=== PATIENT | male | born 1965 | race Caucasian/White ===

== ENCOUNTER 2022-11-20 10:32 | Inpatient (IN) | payer MEDICAID, SELFPAY ==
[2022-11-20 10:33] VITALS: BP 115/81; PULSE 102; RESP 22; TEMP 36.2; O2SAT 98
--- NOTE | 2022-11-20 10:39 | ED.RN ---
PT GETTING A LITTLE AGGRESSIVE IN TRIAGE
--- NOTE | 2022-11-20 12:11 | EKG12_ITS ---
Test Reason : DETOX Blood Pressure : / mmHG Vent. Rate : 081 BPM Atrial Rate : 081 BPM P-R Int : 170 ms QRS Dur : 086 ms QT Int : 366 ms P-R-T Axes : 054 -06 031 degrees QTc Int : 425 ms Normal sinus rhythm Normal ECG Confirmed by CAMELIA WILLS, NORMA ([id number]), fan mail editor PRABHA SNYDER ([id number]) on 11/21/2022 9:16:42 AM Referred By: Confirmed By:NORMA DENISE MD
--- NOTE | 2022-11-20 12:26 | EX.ED.SAOD ---
HPI History of Present Illness Chief Complaint: ETOH Intox Informant: patient and family Narrative Narrative: Patient is a 56-year-old male with history of neuropathy, alcohol abuse/dependence and alcohol intoxication presenting for request of alcohol detox. Patient states that he drinks three quarters of a liter of 80 proof vodka daily. Has been drinking for months. He did recently detoxed through [facility] 2 weeks ago but started drinking again shortly afterwards. He is hoping to go to residential treatment facility after this detox. Patient was drinking prior to arrival. He denies any illicit drug use or marijuana use. He does not use tobacco. He does note he has had some swelling of his lower feet but attributes that to neuropathy. Is not sure how long its been there. His sister and [id number] at the bedside. They are not sure how long as he had been swollen either. Patient does report 1 prior seizure which he attributes to alcohol withdrawal. Patient is no other complaints or concerns at this time. He states he has never been through our inpatient detox program. PFSH PFS Medical History Alcohol abuse Alcohol withdrawal Anxiety Depression Diabetes High cholesterol HTN (hypertension) Smoker Home Medications cetirizine 10 mg tablet (24Hour Allergy) 10 mg PO QHS 11/20/22 [History Last Taken Unknown] clonidine HCl 0.1 mg tablet 0.1 mg PO QHS 11/20/22 [History Last Taken Unknown] dapagliflozin propanediol 10 mg tablet (Farxiga) 10 mg PO DAILY 11/20/22 [History Last Taken Unknown] doxycycline hyclate 100 mg tablet 100 mg PO BID 11/20/22 [History Last Taken Unknown] fluoxetine 40 mg capsule 40 mg PO QPM 11/20/22 [History Last Taken Unknown] fluticasone propionate 50 mcg/actuation nasal spray,suspension (Allergy Relief (fluticasone)) 1 spray intranasal BID 11/20/22 [History Last Taken Unknown] gabapentin 300 mg capsule 300 mg PO TID 11/20/22 [History Last Taken Unknown] glimepiride 2 mg tablet 2 mg PO BID 11/20/22 [History Last Taken Unknown] metformin 500 mg tablet 500 mg PO BID 11/20/22 [History Last Taken Unknown] multivitamin (Daily Multi-Vitamin tablet) 1 tab PO DAILY 11/20/22 [History Last Taken Unknown] nortriptyline 25 mg capsule 25 mg PO QHS 11/20/22 [History Last Taken Unknown] olanzapine 5 mg tablet 10 mg PO QPM 11/20/22 [History Last Taken Unknown] omeprazole 20 mg capsule,delayed release 20 mg PO DAILY 11/20/22 [History Last Taken Unknown] topiramate 50 mg tablet 50 mg PO Q12H 11/20/22 [History Last Taken Unknown] Allergy/AdvReac Type Severity Reaction Status Date / Time No Known Allergies Allergy Verified 11/20/22 10:33 Surgical History Hx of neck surgery Social History Smoking Status: Current every day smoker tobacco type: cigarettes ROS ROS ED Constitutional Constitutional ED: Denies chills or fever(s) Cardiovascular Cardiovascular: Denies chest pain Respiratory/Chest Respiratory/Chest: Denies cough or dyspnea Gastrointestinal Gastrointestinal: Denies nausea or vomiting Musculoskeletal Musculoskeletal: Reports other Details: Bilateral foot swelling ; Denies arthralgias or myalgias Integumentary Denies rash Neurologic Neurologic: Denies weakness Psychiatric Psychiatric: Reports other Details: Alcohol dependency/abuse ; Denies suicidal ideation or suicidal thoughts EXAM Physical Exam Const Vital Signs: 11/20/22 10:33 11/20/22 13:33 Temperature 97.2 F L Temperature Source Temporal Pulse Rate 102 H 79 Respiratory Rate 22 H 16 Blood Pressure 115/81 H 114/94 H Blood Pressure Mean 92 100 Pulse Ox 98 96 Oxygen Delivery Method Room Air Room Air Positive well nourished and well developed Constitutional Narrative: Clinically patient appears intoxicated General Appearance ED: well developed and NAD; Negative for pallor HEENT Reports moist mucous membranes Eyes PERRL and EOMs intact bilaterally Neck supple Neck Narrative: Decreased range of motion, prior extensive cervical surgery Chest Wall inspection of chest normal and palpation of chest normal Resp normal respiratory effort and clear to auscultation bilaterally Cardio regular rate, regular rhythm and no murmurs GI soft to palpation, non-tender and non-distended Extremity Extremity Narrative: Pitting pedal edema bilaterally. General Extremety ED: Yes edema General Extremity: edema Neuro oriented x3 Psych mental status grossly normal and thought process normal Skin General Skin Exam: Negative for jaundice or pallor MDM MDM MDM Narrative Medical decision making narrative: Patient is evaluated for request for alcohol detox. Patient drinking heavily for around 2 weeks. He does appear to be acutely intoxicated. No signs of acute withdrawal at this time. Patient does have some nonspecific pedal edema of the feet. Denies any shortness of breath or respiratory symptoms. Patient's lab work is remarkable for mild hyponatremia with a sodium of 148. Kidney function is normal. As expected, blood alcohol is elevated at 330. Chest x-ray reviewed by myself shows hyperinflation. There is a question of possible scarring versus early infiltrate of the right side however patient does not have a leukocytosis, fever or hypoxia as well as no report of any acute cough so I do not think this is pneumonia. Do not think this requires treatment but can be followed during admission. This is discussed with admitting physician. 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 Clinically patient does not have findings distant with DVT and I do not think this requires a work-up. He does not have pleural effusions or significant abnormality on his EKG and I do not think this is heart failure picture. However, I suppose he is at risk for alcoholic cardiomyopathy. Will be given gentle IV fluids for his hyponatremia. Is admitted to medicine service for inpatient detox. Lab Data Attestation: I reviewed the patient's lab results. Labs: Laboratory Results - last 24 hr 11/20/22 12:54 WBC 5.3 RBC 3.46 L Hgb 11.3 L Hct 35.1 L MCV 101.4 H MCH 32.7 H MCHC 32.2 RDW Std Deviation 58.1 H RDW Coeff of Philip 15.4 H Plt Count 253 MPV 9.2 Immature Gran % (Auto) 1.700 H Neut % (Auto) 22.6 L Lymph % (Auto) 60.8 H [place] % (Auto) 10.6 H Eos % (Auto) 2.8 Baso % (Auto) 1.5 H Absolute Neuts (auto) 1.2 L Absolute Lymphs (auto) 3.21 Nucleated RBC % 0 Sodium 148 H Potassium 4.2 Chloride 111 H Carbon Dioxide 29.0 Anion Gap 8 BUN 7 Creatinine 0.66 L Est GFR (MDRD) Af Amer 160 Est GFR (MDRD) Non-Af 133 BUN/Creatinine Ratio 10.6 Glucose 117 H Calcium 8.8 Total Bilirubin 0.20 AST 23 ALT 30 Alkaline Phosphatase 77 B-Natriuretic Peptide 91.2 Total Protein 6.7 Albumin 2.7 L Globulin 4.0 Albumin/Globulin Ratio 0.7 L Urine Opiates Screen NEGATIVE Urine Methadone Screen NEGATIVE Ur Barbiturates Screen POSITIVE H Ur Phencyclidine Scrn NEGATIVE Ur Amphetamines Screen NEGATIVE MDMA (Ecstasy) Screen NEGATIVE U Benzodiazepines Scrn NEGATIVE Urine Cocaine Screen NEGATIVE U Cannabinoids Screen NEGATIVE Ur Drug Screen Comment Ethyl Alcohol 330.0 H* Radiography Diagnostic Testing: Clinical Impression(s) from Imaging Studies Chest X-Ray 11/20/22 12:57 IMPRESSION: Hyperinflation. Increased markings at the lung bases worse on the right side with areas of confluence. This may represent either scarring and/or early infiltrate. Electronically Signed: Neftali Mueller MD at 13:18 EDT , Rhythm Strip Rhythm Strip: Sinus Rhythm Rate: 81 Ectopy: None EKG Initial EKG: Attestation: I personally reviewed and interpreted this EKG as follows: Interpretation: Sinus Rhythm Comments: Normal sinus rhythm at a rate of 81 bpm Normal axis Normal intervals Normal ST segments Management Discussion w/another healthcare provider: Hospitalist Discharge Plan Dx/Rx/DC Orders Clinical Impression: Alcohol dependence, Hypernatremia Disposition Disposition: Acute Care Hospital [facility] Discharge Date/Time: 11/20/22 14:58
--- NOTE | 2022-11-20 12:57 | RAD_ITS ---
STUDY: X-RAY CHEST REASON FOR EXAM: Male, 56 years old. Edema TECHNIQUE: PA and lateral views of the chest. COMPARISON: None. FINDINGS: There is hyperinflation of the lungs consistent with chronic obstructive lung disease (COPD). Increased markings at the lung bases with areas of confluence worse in the right lower lobe. This may represent either scarring or right basilar infiltrate. There is no demonstrated pleural abnormality. Normal size heart. Normal mediastinum and sergio. Normal visualized pulmonary arteries. There is atherosclerotic tortuosity of the aortic arch and descending thoracic aorta. Normal visualized thoracic spine. Prior fusion in the lower cervical spine. There is no demonstrated abnormality of the visualized soft tissue structures of the upper abdomen. RAD/Chest 1 View (Portable) IMPRESSION: Hyperinflation. Increased markings at the lung bases worse on the right side with areas of confluence. This may represent either scarring and/or early infiltrate. Electronically Signed: Neftali Mueller MD at 13:18 EDT ,
[2022-11-20 13:02] LABS: Absolute Lymphocyte Count 3.21 X10^3/uL (0.83-4.51); Absolute Neutrophil Count 1.2 X10^3/uL (2.0-7.7); Basophil# 0.08 X10^3/uL; Basophil% 1.5 % (0-1); Eosinophil# 0.15 X10^3/uL; Eosinophils% 2.8 % (0-5); Hematocrit 35.1 % (40-54); Hemoglobin 11.3 g/dL (13.0-16.5); Lymphocyte # 3.21 X10^3/ul (0.83-4.51); Lymphocyte % 60.8 % (19-41); Mean Corp Hgb Conc 32.2 g/dL (32-36); Mean Corpuscular Hgb 32.7 pg (27.0-32.0); Mean Corpuscular Volume 101.4 fL (80-94); Mean Platelet Vol. 9.2 fl (6.2-12.0); Monocyte# 0.56 X10^3/uL; Monocyte% 10.6 % (0-10); NRBC Flagged by Analyzer 0 % (0-5); Neutrophil # 1.19 X10^3/uL (2.7-7.7); Neutrophil % 22.6 % (47-70); Platelet Count 253 K/mm3 (150-450); RBC Distribution Width CV 15.4 % (11.6-14.6); RBC Distribution Width SD 58.1 fl (35.1-43.9); Red Blood Count 3.46 M/mm3 (4.6-6.2); White Blood Count 5.3 K/mm3 (4.4-11.0)
[2022-11-20 13:20] LABS: ALB/GLOB Ratio 0.7 RATIO (0.9-2.4); AST(SGOT) 23 U/L (15-37); Alanine Aminotransfer ALT/SGPT 30 U/L (16-61); Albumin, Serum 2.7 g/dL (3.2-5.0); Alkaline Phosphatase 77 U/L (45-117); Anion Gap 8 (5-15); BUN 7 mg/dL (7-18); BUN/Creat Ratio 10.6 RATIO (10-20); Calcium,Total 8.8 mg/dL (8.5-10.1); Chloride 111 mmol/L (98-107); Creatinine, Serum 0.66 mg/dL (0.70-1.30); EST Glomerular Filtration Rate 133 mL/min (>60); Est Glom Filt Rate - Afr Amer 160 mL/min (>60); Glucose 117 mg/dL (74-106); Potassium 4.2 mmol/L (3.5-5.1); Protein, Total 6.7 g/dL (6.4-8.2); Sodium Level 148 mmol/L (136-145)
[2022-11-20 13:22] LABS: BNP,B-Type NATRIURETIC PEPTIDE 91.2 pg/mL (0-100)
[2022-11-20 13:25] LABS: Amphetamine Urine VISTA NEGATIVE (<1000 ng/mL); Barbiturate Urine VISTA POSITIVE (< 200 ng/mL); Benzodiazepine Urine VISTA NEGATIVE (< 200 ng/mL); Cocaine Urine VISTA NEGATIVE (< 300 ng/mL); Ecstacy Urine VISTA NEGATIVE (< 500 ng/mL); Methadone Urine VISTA NEGATIVE (< 300 ng/mL); PCP Urine VISTA NEGATIVE (< 25 ng/mL); THC Urine VISTA NEGATIVE (< 50 ng/mL); Vista UDS pH Range 6
[2022-11-20 13:33] VITALS: BP 114/94; PULSE 79; RESP 16; O2SAT 96
--- NOTE | 2022-11-20 13:56 | CM.ED ---
Social Work SW met with patient and patient's family and introduced herself and role as [facility] SW. Patient lying on hospital bed and agreeable to speak to SW with his family present. SW inquired about patient's knowledge and or questions regarding detox program. Patient shrugged his shoulders. SW briefly reviewed [facility] program including it being voluntary, personal belongings are locked up including his phone, no guests as well as meeting with the detox coordinator to discuss aftercare/discharge plan. Patient reports understanding and has no other needs. SW remains available if needs or questions arise. SW updated detox coordinator. Plan: SINDY KOLB, NAVEEN
--- NOTE | 2022-11-20 14:03 | HP.PCM.HOS_ITS ---
HPI - General General Date of Admission: 11/20/22 Date of Service: 11/20/22 Chief Complaint: Desire for detoxification HPI Narrative JEANETTE LANCASTER, is a 56 M who presents to the ED with desire for detoxification. Patient has [employer] past medical history including hypertension, diabetes mellitus type 2 as well as bipolar disorder. Patient reports daily use of alcohol he drinks 1/5 of vodka daily. Alcohol level on admission was greater than 300. An assessment of acute alcohol desiccation at significant risk for withdrawal was made patient admitted to regular nursing floor for further [facility] Medical History (Updated 11/20/22 @ 14:[address] Emeka Sequeira MD) Alcohol withdrawal High cholesterol HTN (hypertension) Home Medications cetirizine 10 mg tablet (24Hour Allergy) 10 mg PO QHS 11/20/22 [History Last Taken Unknown] clonidine HCl 0.1 mg tablet 0.1 mg PO QHS 11/20/22 [History Last Taken Unknown] dapagliflozin propanediol 10 mg tablet (Farxiga) 10 mg PO DAILY 11/20/22 [History Last Taken Unknown] doxycycline hyclate 100 mg tablet 100 mg PO BID 11/20/22 [History Last Taken Unknown] fluoxetine 40 mg capsule 40 mg PO QPM 11/20/22 [History Last Taken Unknown] fluticasone propionate 50 mcg/actuation nasal spray,suspension (Allergy Relief (fluticasone)) 1 spray intranasal BID 11/20/22 [History Last Taken Unknown] gabapentin 300 mg capsule 300 mg PO TID 11/20/22 [History Last Taken Unknown] glimepiride 2 mg tablet 2 mg PO BID 11/20/22 [History Last Taken Unknown] metformin 500 mg tablet 500 mg PO BID 11/20/22 [History Last Taken Unknown] multivitamin (Daily Multi-Vitamin tablet) 1 tab PO DAILY 11/20/22 [History Last Taken Unknown] nortriptyline 25 mg capsule 25 mg PO QHS 11/20/22 [History Last Taken Unknown] olanzapine 5 mg tablet 10 mg PO QPM 11/20/22 [History Last Taken Unknown] omeprazole 20 mg capsule,delayed release 20 mg PO DAILY 11/20/22 [History Last Taken Unknown] topiramate 50 mg tablet 50 mg PO Q12H 11/20/22 [History Last Taken Unknown] Allergy/AdvReac Type Severity Reaction Status Date / Time No Known Allergies Allergy Verified 11/20/22 10:33 Family History no significant family his no significant family history Surgical History Hx of neck surgery Social History Smoking Status: Unknown if ever smoked ROS ROS Narrative GENERAL: denies fever, chills, night sweats, weight loss, anorexia HEENT: denies headache, sinus congestion, or drainage, dysphagia RESPIRATORY: denies cough, sputum production, shortness of breath, CARDIAC: denies chest pain, palpitations, orthopnea, PND GASTROINTESTINAL: denies abdominal pain, nausea, vomiting, melena, GENITOURINARY: denies dysuria, urgency, frequency, heamaturia EXTREMITY: denies swelling MUSCULOSKELETAL: denies current joint pain or tenderness NEUROLOGIC: denies focal numbness, weakness, tingling HEMATOLOGIC: denies easy bruising and/or hemorrhage INTEGUMENT: denies rashes PSYCHIATRIC: denies suicidal or homicidal ideation Vital Signs Vital Signs Vital Signs: 11/20/22 10:33 11/20/22 13:33 Temperature 97.2 F L Temperature Source Temporal Pulse Rate 102 H 79 Respiratory Rate 22 H 16 Blood Pressure 115/81 H 114/94 H Blood Pressure Mean 92 100 Pulse Ox 98 96 Oxygen Delivery Method Room Air Room Air Physical Exam Narrative GENERAL: cooperative HEENT: Atraumatic; normocephalic EYES; Anicteric, Normal Conjunctiva NECK; supple, normal thyroid, RESPIRATORY: Diminished to auscultation CARDIOVASCULAR: Regular S1 S2, GI: soft, normoactive bowel sounds, : No Renal angle tenderness; EXTREMITIES: No edema, no clubbing, MUSCULOSKELETAL: no muscle wasting NEURO: Awake; no lateralizing signs. SKIN: No Rash PSYCH; Flat affect Results Lab / Micro Data 11/20/22 12:54 11/20/22 12:54 Labs: Laboratory Results - last 24 hr 11/20/22 12:54: WBC 5.3, RBC 3.46 L, Hgb 11.3 L, Hct 35.1 L, MCV 101.4 H, MCH 32.7 H, MCHC 32.2, RDW Std Deviation 58.1 H, RDW Coeff of Philip 15.4 H, Plt Count 253, MPV 9.2, Immature Gran % (Auto) 1.700 H, Neut % (Auto) 22.6 L, Lymph % (Auto) 60.8 H, [place] % (Auto) 10.6 H, Eos % (Auto) 2.8, Baso % (Auto) 1.5 H, Absolute Neuts (auto) 1.2 L, Absolute Lymphs (auto) 3.21, Nucleated RBC % 0, Sodium 148 H, Potassium 4.2, Chloride 111 H, Carbon Dioxide 29.0, Anion Gap 8, BUN 7, Creatinine 0.66 L, Est GFR (MDRD) Af Amer 160, Est GFR (MDRD) Non-Af 133, BUN/Creatinine Ratio 10.6, Glucose 117 H, Calcium 8.8, Total Bilirubin 0.20, AST 23, ALT 30, Alkaline Phosphatase 77, B-Natriuretic Peptide 91.2, Total Protein 6.7, Albumin 2.7 L, Globulin 4.0, Albumin/Globulin Ratio 0.7 L, Urine Opiates Screen NEGATIVE, Urine Methadone Screen NEGATIVE, Ur Barbiturates Screen POSITIVE H, Ur Phencyclidine Scrn NEGATIVE, Ur Amphetamines Screen NEGATIVE, MDMA (Ecstasy) Screen NEGATIVE, U Benzodiazepines Scrn NEGATIVE, Urine Cocaine Screen NEGATIVE, U Cannabinoids Screen NEGATIVE, Ur Drug Screen Comment , Ethyl Alcohol 330.0 H* Radiology Impression Chest X-Ray 11/20/22 12:57 IMPRESSION: Hyperinflation. Increased markings at the lung bases worse on the right side with areas of confluence. This may represent either scarring and/or early infiltrate. Electronically Signed: Neftali Mueller MD at 13:18 EDT , Assessment & Plan Assessment/Plan (1) Alcohol withdrawal: PLAN: Plan Patient is a 56-year-old gentleman with history of alcohol dependence presented with alcohol desiccation at risk for alcohol withdrawal 1. Alcohol desiccation at risk for alcohol withdrawal Patient admitted to regular nursing floor managed with phenobarb taper in addition to adjuvant medications 2. Hyponatremia ? Suspected to be secondary to dehydration patient started on fluids with subsequent monitoring of electrolytes ordered 3. Bipolar disorder ? Discontinue patient psychotropic medication 4. Diabetes mellitus type II Did continue patient home medications in addition to Accu-Cheks a.c. and at bedtime and covered with sliding scale insulin 5. Tobacco dependence - Counseled on cessation, offered nicotine patch for tobacco cravings 6. Diabetic polyneuropathy ? Patient is on gabapentin did continue 7. GERD ? Patient is on PPI 8. Hypertension - Blood pressure controlled, home medications continued with dose adjustment as needed 9. DVT prophylaxis ? Low risk, encouraging ambulation Time spent in the patient's overall evaluation,decision-making process, review of diagnostic data, adjustment of management, discussion with other providers, nursing nursing and ancillary staff involved in patient's care documentation, 60 Minutes Charges/Coding Visit Charges Inpatient E&M: 71434 Init Hosp L2
[2022-11-20 14:07] VITALS: BP 114/94; PULSE 79; RESP 16; TEMP 36.4; O2SAT 96
--- NOTE | 2022-11-20 14:14 | NURSING ---
[address] [place] [address] [facility]
[2022-11-20 15:03] VITALS: BMI 25.2
[2022-11-20 15:11] VITALS: BP 125/89; PULSE 75; RESP 18; TEMP 36.7; O2SAT 100
[2022-11-20] MEDS: Lactated Ringers 1,000 ML 125 ML IV (15:36)
[2022-11-20] MEDS: Phenobarbital 32.4 MG Tablet 64.8 MG PO ×3 (15:36→22:07)
[2022-11-20] MEDS: Gabapentin 300 MG Capsule PO ×2 (15:36→22:06)
[2022-11-20 16:37] LABS: Bedside Glucose 123 mg/dL (74-106)
[2022-11-20 18:00] VITALS: BP 120/75; PULSE 85; RESP 18; TEMP 36.3; O2SAT 94
[2022-11-20] MEDS: Topiramate 50 MG Tablet PO (18:50)
[2022-11-20 22:00] VITALS: BP 128/84; PULSE 78; RESP 18; TEMP 36.7; O2SAT 97
[2022-11-20] MEDS: Glimepiride 2 MG Tablet PO (22:06)
[2022-11-20] MEDS: hydrOXYzine PAM 25 MG Capsule 50 MG PO (22:06)
[2022-11-20] MEDS: Nortriptyline 25 MG Capsule PO (22:06)
[2022-11-20] MEDS: cloNIDine HCl 0.1 MG Tablet PO (22:06)
[2022-11-20] MEDS: metFORMIN HCl 500 MG Tablet PO (22:07)
[2022-11-20] MEDS: OLANZapine 10 MG Tablet PO (22:07)
[2022-11-20] MEDS: Loratadine 10 MG Tablet PO (22:07)
[2022-11-20] MEDS: Fluoxetine HCl 40 MG CAPSULE PO (22:07)
[2022-11-20] MEDS: Fluticasone 0.05% 1 SPRAY NASAL.SRY NASAL (22:11)
[2022-11-20 23:00] LABS: Bedside Glucose 132 mg/dL (74-106)
[2022-11-21] MEDS: Topiramate 50 MG Tablet PO ×2 (03:31→15:16)
[2022-11-21] MEDS: hydrOXYzine PAM 25 MG Capsule 50 MG PO ×2 (03:31→21:54)
[2022-11-21] MEDS: Phenobarbital 32.4 MG Tablet 64.8 MG PO ×6 (03:31→21:57)
[2022-11-21 03:45] VITALS: BP 110/77; PULSE 74; RESP 16; TEMP 36.6; O2SAT 98
[2022-11-21 06:00] VITALS: PULSE 72; RESP 16; TEMP 36.6; O2SAT 98
[2022-11-21] MEDS: Gabapentin 300 MG Capsule PO ×3 (06:11→21:54)
[2022-11-21 06:33] LABS: Bedside Glucose 112 mg/dL (74-106)
[2022-11-21 07:00] LABS: ALB/GLOB Ratio 0.7 RATIO (0.9-2.4); AST(SGOT) 19 U/L (15-37); Alanine Aminotransfer ALT/SGPT 23 U/L (16-61); Albumin, Serum 2.3 g/dL (3.2-5.0); Alkaline Phosphatase 69 U/L (45-117); Anion Gap 5 (5-15); BUN 9 mg/dL (7-18); BUN/Creat Ratio 17.2 RATIO (10-20); Calcium,Total 8.6 mg/dL (8.5-10.1); Chloride 108 mmol/L (98-107); Creatinine, Serum 0.52 mg/dL (0.70-1.30); EST Glomerular Filtration Rate 173 mL/min (>60); Est Glom Filt Rate - Afr Amer 209 mL/min (>60); Estimated Creatinine Clearance 168.94 ml/min; Globulin 3.5 g/dL (2.2-4.2); Glucose 104 mg/dL (74-106); Potassium 3.5 mmol/L (3.5-5.1); Protein, Total 5.8 g/dL (6.4-8.2); Sodium Level 140 mmol/L (136-145)
--- NOTE | 2022-11-21 07:25 | PN.HOSP_ITS ---
Reason for Visit Reason for Visit: Diagnoses Alcohol use, unspecified with withdrawal, unspecified (11/20/22) Subjective Subjective Patient is a 56-year-old gentleman with history of alcohol dependence presented with alcohol intoxication. Admitted to regular nursing floor where patient is currently being managed with phenobarb taper Objective Data Objective Data Vital Signs: Vital Signs Temp Pulse Resp BP Pulse Ox O2 Del Method 97.9 F 74 16 110/77 98 Room Air 11/21/22 03:45 11/21/22 03:45 11/21/22 03:45 11/21/22 03:45 11/21/22 03:45 11/21/22 03:45 Oxygen Delivery Method Room Air Weight: 82 kg Body Mass Index (BMI) 25.2 Intake & Output: Intake and Output for Last 24 Hours 11/19/22 11/20/22 11/21/22 23:59 23:59 23:59 Intake Total 1000 / 1000 Balance 1000 / 1000 Lab / Micro Data 11/20/22 12:54 11/21/22 05:30 Labs: Laboratory Results - last 24 hr 11/20/22 12:54: WBC 5.3, RBC 3.46 L, Hgb 11.3 L, Hct 35.1 L, MCV 101.4 H, MCH 32.7 H, MCHC 32.2, RDW Std Deviation 58.1 H, RDW Coeff of Philip 15.4 H, Plt Count 253, MPV 9.2, Immature Gran % (Auto) 1.700 H, Neut % (Auto) 22.6 L, Lymph % (Auto) 60.8 H, [place] % (Auto) 10.6 H, Eos % (Auto) 2.8, Baso % (Auto) 1.5 H, Absolute Neuts (auto) 1.2 L, Absolute Lymphs (auto) 3.21, Nucleated RBC % 0, Sodium 148 H, Potassium 4.2, Chloride 111 H, Carbon Dioxide 29.0, Anion Gap 8, BUN 7, Creatinine 0.66 L, Est GFR (MDRD) Af Amer 160, Est GFR (MDRD) Non-Af 133, BUN/Creatinine Ratio 10.6, Glucose 117 H, Calcium 8.8, Total Bilirubin 0.20, AST 23, ALT 30, Alkaline Phosphatase 77, B-Natriuretic Peptide 91.2, Total Protein 6.7, Albumin 2.7 L, Globulin 4.0, Albumin/Globulin Ratio 0.7 L, Urine Opiates Screen NEGATIVE, Urine Methadone Screen NEGATIVE, Ur Barbiturates Screen POSITIVE H, Ur Phencyclidine Scrn NEGATIVE, Ur Amphetamines Screen NEGATIVE, MDMA (Ecstasy) Screen NEGATIVE, U Benzodiazepines Scrn NEGATIVE, Urine Cocaine Screen NEGATIVE, U Cannabinoids Screen NEGATIVE, Ur Drug Screen Comment , Ethyl Alcohol 330.0 H* 11/20/22 16:18: POC Glucose 123 H 11/20/22 22:14: POC Glucose 132 H 11/21/22 05:30: Sodium 140, Potassium 3.5, Chloride 108 H, Carbon Dioxide 27.0, Anion Gap 5, BUN 9, Creatinine 0.52 L, Estim Creat Clear Calc 168.94, Est GFR (MDRD) Af Amer 209, Est GFR (MDRD) Non-Af 173, BUN/Creatinine Ratio 17.2, Glucose 104, Calcium 8.6, Total Bilirubin 0.30, AST 19, ALT 23, Alkaline Phosphatase 69, Total Protein 5.8 L, Albumin 2.3 L, Globulin 3.5, Albumin/Globulin Ratio 0.7 L 11/21/22 06:10: POC Glucose 112 H Radiography Diagnostic Testing: Radiology Impression Chest X-Ray 11/20/22 12:57 IMPRESSION: Hyperinflation. Increased markings at the lung bases worse on the right side with areas of confluence. This may represent either scarring and/or early infiltrate. Electronically Signed: Neftali Mueller MD at 13:18 EDT , Rhythm Strip Rhythm Strip: Sinus Rhythm Rate: 81 Ectopy: None Physical Exam Narrative GENERAL: cooperative HEENT: Atraumatic; normocephalic EYES; Anicteric, Normal Conjunctiva NECK; supple, normal thyroid, RESPIRATORY: Diminished to auscultation CARDIOVASCULAR: Regular S1 S2, GI: soft, normoactive bowel sounds, : No Renal angle tenderness; EXTREMITIES: No edema, no clubbing, MUSCULOSKELETAL: no muscle wasting NEURO: Awake; no lateralizing signs. SKIN: No Rash PSYCH; Flat affect Assessment & Plan Assessment/Plan (1) Alcohol withdrawal: PLAN: Plan Patient is a 56-year-old gentleman with history of alcohol dependence presented with alcohol tox occasion at risk for alcohol withdrawal 1. Alcohol intoxication at risk for alcohol withdrawal Patient admitted to regular nursing floor managed with phenobarb taper in addition to adjuvant medications ? 11/21/2022; patient is on a phenobarbital 2. Hyponatremia ? Suspected to be secondary to dehydration patient started on fluids with subsequent monitoring of electrolytes ordered 3. Bipolar disorder ? Discontinue patient psychotropic medication 4. Diabetes mellitus type II Did continue patient home medications in addition to Accu-Cheks a.c. and at bedtime and covered with sliding scale insulin 5. Tobacco dependence - Counseled on cessation, offered nicotine patch for tobacco cravings 6. Diabetic polyneuropathy ? Patient is on gabapentin did continue 7. GERD ? Patient is on PPI 8. Hypertension - Blood pressure controlled, home medications continued with dose adjustment as needed 9. DVT prophylaxis ? Low risk, encouraging ambulation Time spent in the patient's overall evaluation,decision-making process, review of diagnostic data, adjustment of management, discussion with other providers, nursing nursing and ancillary staff involved in patient's care documentation, 35 Minutes Charges/Coding Visit Charges Inpatient E&M: 90329 Subs Hosp L2
[2022-11-21] MEDS: metFORMIN HCl 500 MG Tablet PO ×2 (09:11→21:47)
[2022-11-21] MEDS: Multivitamins,Therapeutic Tablet 1 TABLET PO (09:11)
[2022-11-21] MEDS: Thiamine Hydrochloride 100 MG Tablet PO (09:11)
[2022-11-21] MEDS: Pantoprazole Sodium 20 MG Tablet PO (09:11)
[2022-11-21] MEDS: Fluticasone 0.05% 1 SPRAY NASAL.SRY NASAL (09:12)
[2022-11-21] MEDS: Folic Acid 1 MG Tablet PO (09:12)
[2022-11-21] MEDS: Glimepiride 2 MG Tablet PO ×2 (09:12→21:47)
[2022-11-21] MEDS: Empagliflozin 10 MG Tablet PO (09:17)
[2022-11-21 10:00] VITALS: BP 126/82; PULSE 78; RESP 16; TEMP 36.6; O2SAT 99
[2022-11-21] MEDS: Insulin Lispro 100 UNIT/ML INSULN.PEN SC ×3 (11:39→21:48)
[2022-11-21 11:53] LABS: Bedside Glucose 281 mg/dL (74-106)
--- NOTE | 2022-11-21 13:43 | ADDICTION ---
This selling underwriter met with PT to conduct ASAM, MSE, AUDIT assessments and to plan for d/c. PT A+Ox4 and participated actively. All assessments completed and placed in PT's chart. PT plans to f/u with [facility] for follow-up inpatient treatment services. PT reports that we will need to call [facility] for transportation post d/c from [facility].
[2022-11-21 14:00] VITALS: BP 116/80; PULSE 74; RESP 16; TEMP 36.7; O2SAT 96
--- NOTE | 2022-11-21 16:43 | CHAPLAIN ---
Type of Pastoral Visit _x__ Initial Visit ___ Follow-up Visit ___ On-call Visit ___ General Patient Visit ___ Spiritual Assessment ___ Family Conference ___ Bereavement ___ Rapid Response ___ Code Blue ___ Other (describe below) Pastoral Care Referral From _x__ Patient ___ Family ___ Nurse ___ Physician ___ Rug Receiving Clerk ___ Shuttleless Loom Weaver ___ Other (describe below) Sacrament/Intervention _x__ Active listening ___ Anointing ___ Caodaism ___ Bereavement ___ Communion _x__ Gisell exploration ___ _x__ Life review _x__ Prayer ___ Reconciliation ___ Sacrament of Sick ___ Supportive presence ___ Wedding ___ Other (describe below) Pastoral Comments patient accepts presence of this plate molder and answers questions; pt states that he needs something to do so he won't drink; pt explains his situation of being on disability, living alone, having very limited support system, and inactive with catholic; pt repeats that he just needs something to do; explored what patient believes would be helpful activities for himself; pt welcomes prayer
[2022-11-21 16:44] LABS: Bedside Glucose 182 mg/dL (74-106)
[2022-11-21 21:41] VITALS: BP 99/61; PULSE 72; RESP 18; TEMP 36.3; O2SAT 98
[2022-11-21] MEDS: OLANZapine 10 MG Tablet PO (21:47)
[2022-11-21] MEDS: Loratadine 10 MG Tablet PO (21:47)
[2022-11-21] MEDS: Nortriptyline 25 MG Capsule PO (21:47)
[2022-11-21] MEDS: Fluoxetine HCl 40 MG CAPSULE PO (21:47)
[2022-11-21 22:07] LABS: Bedside Glucose 171 mg/dL (74-106)
[2022-11-22] MEDS: Topiramate 50 MG Tablet PO ×2 (03:42→14:44)
[2022-11-22] MEDS: Phenobarbital 32.4 MG Tablet 64.8 MG PO ×6 (03:42→22:44)
[2022-11-22 03:44] VITALS: BP 133/99; PULSE 112; RESP 18; TEMP 36.4; O2SAT 97
[2022-11-22] MEDS: Gabapentin 300 MG Capsule PO ×3 (06:34→22:32)
[2022-11-22] MEDS: Insulin Lispro 100 UNIT/ML INSULN.PEN SC ×4 (06:36→22:38)
[2022-11-22 06:54] LABS: Bedside Glucose 205 mg/dL (74-106)
--- NOTE | 2022-11-22 07:06 | PN.HOSP_ITS ---
Reason for Visit Reason for Visit: Diagnoses Alcohol use, unspecified with withdrawal, unspecified (11/20/22) Subjective Subjective Has tolerated the phenobarb taper well so far Objective Data Objective Data Vital Signs: Vital Signs Temp Pulse Resp BP Pulse Ox O2 Del Method 97.5 F L 112 H 18 133/99 H 97 Room Air 11/22/22 03:44 11/22/22 03:44 11/22/22 03:44 11/22/22 03:44 11/22/22 03:44 11/22/22 03:44 Oxygen Delivery Method Room Air Weight: 82 kg Body Mass Index (BMI) 25.2 Intake & Output: Intake and Output for Last 24 Hours 11/20/22 11/21/22 11/22/22 23:59 23:59 23:59 Intake Total 1000 / 1000 600 / 600 Output Total 1450 / 1450 Balance 1000 / 1000 -850 / -850 Lab / Micro Data 11/20/22 12:54 11/21/22 05:30 Labs: Laboratory Results - last 24 hr 11/21/22 11:35: POC Glucose 281 H 11/21/22 16:23: POC Glucose 182 H 11/21/22 21:47: POC Glucose 171 H 11/22/22 06:35: POC Glucose 205 H Rhythm Strip Rhythm Strip: Sinus Rhythm Rate: 81 Ectopy: None Physical Exam Narrative GENERAL: cooperative HEENT: Atraumatic; normocephalic EYES; Anicteric, Normal Conjunctiva NECK; supple, normal thyroid, RESPIRATORY: Diminished to auscultation CARDIOVASCULAR: Regular S1 S2, GI: soft, normoactive bowel sounds, : No Renal angle tenderness; EXTREMITIES: No edema, no clubbing, MUSCULOSKELETAL: no muscle wasting NEURO: Awake; no lateralizing signs. SKIN: No Rash PSYCH; Flat affect Assessment & Plan Assessment/Plan (1) Alcohol withdrawal: PLAN: Plan Patient is a 56-year-old gentleman with history of alcohol dependence presented with alcohol tox occasion at risk for alcohol withdrawal 1. Alcohol intoxication at risk for alcohol withdrawal Patient admitted to regular nursing floor managed with phenobarb taper in edna tion to adjuvant medications ? 11/21/2022; patient is on a phenobarbital 2. Hyponatremia ? Suspected to be secondary to dehydration patient started on fluids with subsequent monitoring of electrolytes ordered 3. Bipolar disorder ? Discontinue patient psychotropic medication 4. Diabetes mellitus type II Did continue patient home medications in addition to Accu-Cheks a.c. and at bedtime and covered with sliding scale insulin 5. Tobacco dependence - Counseled on cessation, offered nicotine patch for tobacco cravings 6. Diabetic polyneuropathy ? Patient is on gabapentin did continue 7. GERD ? Patient is on PPI 8. Hypertension - Blood pressure controlled, home medications continued with dose adjustment as needed 9. DVT prophylaxis ? Low risk, encouraging ambulation Time spent in the patient's overall evaluation,decision-making process, review of diagnostic data, adjustment of management, discussion with other providers, nursing nursing and ancillary staff involved in patient's care documentation, 35 Minutes Charges/Coding Visit Charges Inpatient E&M: 37027 Subs Hosp L2
[2022-11-22] MEDS: Multivitamins,Therapeutic Tablet 1 TABLET PO (07:42)
[2022-11-22] MEDS: Glimepiride 2 MG Tablet PO ×2 (07:42→22:33)
[2022-11-22] MEDS: metFORMIN HCl 500 MG Tablet PO ×2 (07:43→22:32)
[2022-11-22] MEDS: Fluticasone 0.05% 1 SPRAY NASAL.SRY NASAL ×2 (07:43→22:33)
[2022-11-22] MEDS: Folic Acid 1 MG Tablet PO (07:43)
[2022-11-22] MEDS: Thiamine Hydrochloride 100 MG Tablet PO (07:44)
[2022-11-22] MEDS: Pantoprazole Sodium 20 MG Tablet PO (07:44)
[2022-11-22] MEDS: Empagliflozin 10 MG Tablet PO (07:44)
[2022-11-22 09:00] VITALS: BP 103/71; PULSE 82; RESP 16; TEMP 36.4; O2SAT 98
[2022-11-22 11:27] LABS: Bedside Glucose 201 mg/dL (74-106)
[2022-11-22 11:35] VITALS: BP 104/68; PULSE 88; RESP 16; TEMP 36.4; O2SAT 99
[2022-11-22 14:57] VITALS: BP 91/63; PULSE 91; RESP 16; TEMP 36.6; O2SAT 97
[2022-11-22 16:18] LABS: Bedside Glucose 162 mg/dL (74-106)
[2022-11-22 20:58] VITALS: BP 117/81; PULSE 77; RESP 16; TEMP 36.6; O2SAT 97
[2022-11-22] MEDS: Nortriptyline 25 MG Capsule PO (22:32)
[2022-11-22] MEDS: Loratadine 10 MG Tablet PO (22:32)
[2022-11-22] MEDS: OLANZapine 10 MG Tablet PO (22:33)
[2022-11-22] MEDS: Fluoxetine HCl 40 MG CAPSULE PO (22:33)
[2022-11-22] MEDS: cloNIDine HCl 0.1 MG Tablet PO (22:34)
[2022-11-22 23:03] LABS: Bedside Glucose 221 mg/dL (74-106)
[2022-11-23 03:00] VITALS: BP 98/71; PULSE 94; RESP 16; TEMP 36.4; O2SAT 98
[2022-11-23] MEDS: Topiramate 50 MG Tablet PO (03:50)
[2022-11-23] MEDS: Phenobarbital 32.4 MG Tablet 64.8 MG PO ×2 (06:26→12:05)
[2022-11-23] MEDS: Gabapentin 300 MG Capsule PO (06:26)
[2022-11-23] MEDS: Insulin Lispro 100 UNIT/ML INSULN.PEN SC ×2 (06:30→12:01)
[2022-11-23 06:49] LABS: Bedside Glucose 158 mg/dL (74-106)
[2022-11-23 08:56] VITALS: BP 100/74; PULSE 83; RESP 16; TEMP 36.5; O2SAT 100
--- NOTE | 2022-11-23 09:03 | PCM.PN.HOSP ---
Reason for Visit Reason for Visit: Diagnoses Alcohol use, unspecified with withdrawal, unspecified (11/20/22) Subjective Subjective Patient seen at a relatively uneventful night. Plan for patient to be assessed for possible discharge Objective Data Objective Data Vital Signs: Vital Signs Temp Pulse Resp BP Pulse Ox O2 Del Method 97.7 F L 83 16 100/74 100 Room Air 11/23/22 08:56 11/23/22 08:56 11/23/22 08:56 11/23/22 08:56 11/23/22 08:56 11/23/22 08:56 Oxygen Delivery Method Room Air Weight: 82 kg Body Mass Index (BMI) 25.2 Intake & Output: Intake and Output for Last 24 Hours 11/21/22 11/22/22 11/23/22 23:59 23:59 23:59 Intake Total 600 / 600 1250 / 1730 480 / 480 Output Total 1450 / 1450 Balance -850 / -850 1250 / 1730 480 / 480 Lab / Micro Data 11/20/22 12:54 11/21/22 05:30 Labs: Laboratory Results - last 24 hr 11/22/22 11:07: POC Glucose 201 H 11/22/22 15:57: POC Glucose 162 H 11/22/22 22:38: POC Glucose 221 H 11/23/22 06:29: POC Glucose 158 H Rhythm Strip Rhythm Strip: Sinus Rhythm Rate: 81 Ectopy: None Physical Exam Narrative GENERAL: cooperative HEENT: Atraumatic; normocephalic EYES; Anicteric, Normal Conjunctiva NECK; supple, normal thyroid, RESPIRATORY: Diminished to auscultation CARDIOVASCULAR: Regular S1 S2, GI: soft, normoactive bowel sounds, : No Renal angle tenderness; EXTREMITIES: No edema, no clubbing, MUSCULOSKELETAL: no muscle wasting NEURO: Awake; no lateralizing signs. SKIN: No Rash PSYCH; Flat affect Assessment & Plan Assessment/Plan (1) Alcohol withdrawal: PLAN: Plan Patient is a 56-year-old gentleman with history of alcohol dependence presented with alcohol tox occasion at risk for alcohol withdrawal 1. Alcohol intoxication at risk for alcohol withdrawal Patient admitted to regular nursing floor managed with phenobarb taper in addition to adjuvant medications ? 11/21/2022; patient is on a phenobarbital 2. Hyponatremia ? Suspected to be secondary to dehydration patient started on fluids with subsequent monitoring of electrolytes ordered 3. Bipolar disorder ? Discontinue patient psychotropic medication 4. Diabetes mellitus type II Did continue patient home medications in addition to Accu-Cheks a.c. and at bedtime and covered with sliding scale insulin 5. Tobacco dependence - Counseled on cessation, offered nicotine patch for tobacco cravings 6. Diabetic polyneuropathy ? Patient is on gabapentin did continue 7. GERD ? Patient is on PPI 8. Hypertension - Blood pressure controlled, home medications continued with dose adjustment as needed 9. DVT prophylaxis ? Low risk, encouraging ambulation Time spent in the patient's overall evaluation,decision-making process, review of diagnostic data, adjustment of management, discussion with other providers, nursing nursing and ancillary staff involved in patient's care documentation, 35 Minutes Charges/Coding Visit Charges Inpatient E&M: 55635 Subs Hosp L2
[2022-11-23] MEDS: Pantoprazole Sodium 20 MG Tablet PO (09:05)
[2022-11-23] MEDS: Multivitamins,Therapeutic Tablet 1 TABLET PO (09:05)
[2022-11-23] MEDS: Glimepiride 2 MG Tablet PO (09:05)
--- NOTE | 2022-11-23 09:06 | PCM.DC.SUM ---
Providers Date of Admission: 11/20/22 Date of Discharge: 11/23/22 Primary Care Physician: Luis Tarango Reason For Visit: ALCOHOL WITHDRAWAL Diagnosis Discharge Diagnosis (1) Alcohol withdrawal: Status: Acute Code(s): F10.939 - Alcohol use, unspecified with withdrawal, unspecified Plan Patient is a 56-year-old gentleman with history of alcohol dependence presented with alcohol tox occasion at risk for alcohol withdrawal 1. Alcohol intoxication at risk for alcohol withdrawal Patient admitted to regular nursing floor managed with phenobarb taper in addition to adjuvant medications ? 11/21/2022; patient is on a phenobarbital 2. Hyponatremia ? Suspected to be secondary to dehydration patient started on fluids with subsequent monitoring of electrolytes ordered 3. Bipolar disorder ? Discontinue patient psychotropic medication 4. Diabetes mellitus type II Did continue patient home medications in addition to Accu-Cheks a.c. and at bedtime and covered with sliding scale insulin 5. Tobacco dependence - Counseled on cessation, offered nicotine patch for tobacco cravings 6. Diabetic polyneuropathy ? Patient is on gabapentin did continue 7. GERD ? Patient is on PPI 8. Hypertension - Blood pressure controlled, home medications continued with dose adjustment as needed 9. DVT prophylaxis ? Low risk, encouraging ambulation Time spent in the patient's overall evaluation,decision-making process, review of diagnostic data, adjustment of management, discussion with other providers, nursing nursing and ancillary staff involved in patient's care documentation, 35 Minutes Medications at Discharge Home Medications cetirizine 10 mg tablet (24Hour Allergy) 10 mg PO QHS 11/20/22 clonidine HCl 0.1 mg tablet 0.1 mg PO QHS 11/20/22 dapagliflozin propanediol 10 mg tablet (Farxiga) 10 mg PO DAILY 11/20/22 fluoxetine 40 mg capsule 40 mg PO QPM 11/20/22 fluticasone propionate 50 mcg/actuation nasal spray,suspension (Allergy Relief (fluticasone)) 1 spray intranasal BID 11/20/22 gabapentin 300 mg capsule 300 mg PO TID 11/20/22 glimepiride 2 mg tablet 2 mg PO BID 11/20/22 metformin 500 mg tablet 500 mg PO BID 11/20/22 multivitamin (Daily Multi-Vitamin tablet) 1 tab PO DAILY 11/20/22 nortriptyline 25 mg capsule 25 mg PO QHS 11/20/22 olanzapine 5 mg tablet 10 mg PO QPM 11/20/22 omeprazole 20 mg capsule,delayed release 20 mg PO DAILY 11/20/22 topiramate 50 mg tablet 50 mg PO Q12H 11/20/22 Hospital Course Summary of Care Provided Minutes Spent on Discharge: 35 Physical Exam Narrative GENERAL: cooperative HEENT: Atraumatic; normocephalic EYES; Anicteric, Normal Conjunctiva NECK; supple, normal thyroid, RESPIRATORY: Diminished to auscultation CARDIOVASCULAR: Regular S1 S2, GI: soft, normoactive bowel sounds, : No Renal angle tenderness; EXTREMITIES: No edema, no clubbing, MUSCULOSKELETAL: no muscle wasting NEURO: Awake; no lateralizing signs. SKIN: No Rash PSYCH; Flat affect Weight / BMI Weight Weight: 82 kg Body Mass Index (BMI) 25.2 ABG / Lab / Microbiology Data 11/20/22 12:54 11/21/22 05:30 Laboratory: Laboratory Results - last 24 hr 11/22/22 11:07: POC Glucose 201 H 11/22/22 15:57: POC Glucose 162 H 11/22/22 22:38: POC Glucose 221 H 11/23/22 06:29: POC Glucose 158 H D/C Instructions Discharge Diet: 1800 Calorie Control Diet Discharge Activity: Return to Normal Activity Call your doctor if you observe: Fever of 101 or Higher, Shortness of breath, Fainting spells and Chest pain Meaningful Use Info Meaningful Use Diagnoses (Choose all that apply): None applicable Discharge Plan Admission Admit Date/Time: 11/20/22 13:56 Attending Provider: Emeka Sequeira Primary Care Provider: Luis Tarango Discharge Orders/Prescriptions Prescriptions: Continued gabapentin 300 mg capsule 300 mg PO TID clonidine HCl 0.1 mg tablet 0.1 mg PO QHS Farxiga 10 mg tablet 10 mg PO DAILY olanzapine 5 mg tablet 10 mg PO QPM multivitamin [Daily Multi-Vitamin] Tablet 1 tab PO DAILY omeprazole 20 mg capsule,delayed release(DR/EC) 20 mg PO DAILY topiramate 50 mg tablet 50 mg PO Q12H Patient Comments: Take 1 tablet by mouth twice a day metformin 500 mg tablet 500 mg PO BID fluoxetine 40 mg capsule 40 mg PO QPM glimepiride 2 mg tablet 2 mg PO BID cetirizine [24Hour Allergy] 10 mg tablet 10 mg PO QHS nortriptyline 25 mg capsule 25 mg PO QHS fluticasone propionate [Allergy Relief (fluticasone)] 50 mcg/actuation spray,suspension 1 spray intranasal BID Rx Instructions: administer into each nostril Discontinued doxycycline hyclate 100 mg tablet 100 mg PO BID Referrals / Follow Up: Luis Tarango [Other] Luis Tarango [Other] Disposition Disposition (needs filled in before D/C Order can be placed): Home, Self Care Charges/Coding Visit Charges Inpatient E&M: 50648 Disch Hosp >30min
[2022-11-23] MEDS: Fluticasone 0.05% 1 SPRAY NASAL.SRY NASAL (09:07)
[2022-11-23] MEDS: metFORMIN HCl 500 MG Tablet PO (09:07)
[2022-11-23] MEDS: Folic Acid 1 MG Tablet PO (09:07)
[2022-11-23] MEDS: Thiamine Hydrochloride 100 MG Tablet PO (09:08)
[2022-11-23] MEDS: Empagliflozin 10 MG Tablet PO (09:08)
--- NOTE | 2022-11-23 10:20 | NURSING ---
talked with Jaja Ray Navigator as aware per Chief Deputy Clerk/Bailiff Hortencia that [facility] when called stated they do not have any open beds for patient today. Aware per Jaja they will work with patient tomorrow thursday to get patient into alternative inpatient facility if agreeable and ok to stay per Dr. Sequeira. Talked with Dr. Sequeira, he's agreeable to keep patient. Talked with Primary RN regarding above. Aware Primary RN Alycia discussed discharge plans with patient and pt verbalized preference to be discharged home. updated
--- NOTE | 2022-11-23 10:36 | NURSING ---
Pt thought he was going to [facility] but per Blanca there is no bed available. Pt was encouraged by this RN to stay until tomorrow and we could formulate a new plan with Moise Pitts Detox Coordinator but pt refused. I'll just go home. This Nurse talked with pt over 5 min about other options and why it could help if he stayed. Pt again refused. This RN called and spoke with his Sister Melissa who stated to this RN I tried to tell him that there were no beds available. Melissa seems very concerned about her brother. Melissa states she will come pick him up.
[2022-11-23 12:20] LABS: Bedside Glucose 184 mg/dL (74-106)
== END 2022-11-23 12:08 | disposition home or self-care (01) | DRG 772 ==
LOC: ED 11:38 → MS3 14:21
PROVIDERS: Admitting Provider Internal Medicine; Emergency Provider Emergency Medicine; Visit Provider Internal Medicine
DX: F10.220 Alcohol dependence with intoxication, uncomplicated (principal); E87.0 Hyperosmolality and hypernatremia; E11.42 Type 2 diabetes mellitus with diabetic polyneuropathy; F31.9 Bipolar disorder, unspecified; F10.230 Alcohol dependence with withdrawal, uncomplicated; E78.00 Pure hypercholesterolemia, unspecified; I10 Essential (primary) hypertension; K21.9 Gastro-esophageal reflux disease without esophagitis; E86.0 Dehydration; F17.210 Nicotine dependence, cigarettes, uncomplicated; Y90.8 Blood alcohol level of 240 mg/100 ml or more; Z79.84 Long term (current) use of oral hypoglycemic drugs; Z79.899 Other long term (current) drug therapy
CPT/HCPCS: 36415; 71045; 80053; 80307; 82077; 82962; 83880; 85025; 93005; 99284; J7030; J7120; A4216